=== PATIENT | female | born 1985 | race Caucasian/White ===

== ENCOUNTER → 2017-08-29 | Day surgery (SDC) | payer MEDICAID ==
[~2017-08-29] MED LIST: LACTATED RINGER'S 1000 ML INJ 1,000 ML ONE; MIDAZOLAM HCL 2 MG/2 ML VIAL ONE; ceFAZolin INJ 1,000 MG VIAL ONE
== END | disposition home or self-care (01) ==
LOC: ESDC 06:49
PROVIDERS: ATTEND Obstetrics & Gynecology
DX: Z30.2 Encounter for sterilization (principal); Z53.8 Procedure and treatment not carried out for other reasons
CPT/HCPCS: J0690; J2250; J7120

== ENCOUNTER → 2017-09-01 | Day surgery (SDC) | payer MEDICAID ==
[~2017-09-01] MED LIST changes: +KETOROLAC TROMETHAMINE 30 MG/ML (IVP) VIAL IV PUSH ONE; -LACTATED RINGER'S 1000 ML INJ 1,000 ML ONE; +MEPERIDINE HCL 25 MG/ML VIAL ONE; +ONDANSETRON HCL 4 MG/2 ML VIAL IV PUSH ONE; +PROPOFOL 200 MG/20 ML AMP IV ONE; +oxyCODONE/ACETAMINOPHEN 5 MG/325 MG TAB ONE
--- NOTE | 2017-09-01 13:42 | TN ---
cc: TEE HERRERA DATE OF SURGERY: 09/01/2017 PREOPERATIVE DIAGNOSIS Desires permanent sterility. POSTOPERATIVE DIAGNOSIS Desires permanent sterility. PROCEDURE Laparoscopic bilateral tubal ligation with Falope ring. SURGEON Tee Herrera MD ANESTHESIA General. ESTIMATED BLOOD LOSS 30 ccs. COMPLICATIONS None. FINDINGS The patient had a grossly normal uterus, ovaries and fallopian tubes. The upper abdominal organs were also grossly normal. DESCRIPTION OF PROCEDURE The patient was brought to the operating room and following general anesthesia was placed in dorsal lithotomy position. Her vagina, abdomen and perineum were prepped and draped. A HUMI catheter was placed in the uterus and the bladder was drained with a red rubber catheter. A 1 cm subumbilical skin incision was made. Veress needle was inserted and 3 liters of CO2 was infused into the abdomen. Veress needle was then removed and the laparoscope was placed without difficulty. A second puncture site was created under direct visualization. The findings were as noted above. Falope ring applicator was loaded and Falope rings were easily applied to the isthmic portion of each tube. Excellent portion of tube was noted to be present within the rings. There was no bleeding. Photos of all areas were taken. The CO2 gas was allowed to escape and the trocars were removed. Incisions were then closed with subcuticular #4-0 Vicryl stitch. The patient was then taken to the recovery room in good condition with all counts correct. She will be discharged home when stable in order to be followed up in 1 week in our office. Discharge medication is Percocet. She is given instructions on physical activity, instructed to resume regular diet as tolerated. Tee Herrera MD TGS/TLL /12:18 PM /1:08 PM
== END | disposition home or self-care (01) ==
LOC: ESDC 10:15
PROVIDERS: ATTEND Obstetrics & Gynecology
DX: Z30.2 Encounter for sterilization (principal)
CPT/HCPCS: 00851; 58671; J0690; J1885; J2175; J2250; J2405; J3010